=== PATIENT | female | born 1975 | race Caucasian/White ===

== ENCOUNTER 2020-10-09 10:54 | Outpatient (REF) | payer MEDICARE, MEDICAID, SELFPAY ==
[2020-10-09 13:30] LABS: MANUAL DIFF FLAG NO
[2020-10-09 13:31] LABS: Basophils Absolute Auto 0.1 X10*3/uL (0.0-0.2); Basophils Percent Auto 0.6 % (0-2); Eosinophils Absolute Auto 0.2 X10*3/uL (0.0-0.4); Eosinophils Percent Auto 1.4 % (0-4); Hematocrit 42.4 % (37-47); Imm Gran Abs Auto 0.04 X10*3/uL (0.00-0.03); Imm Gran Pct Auto 0.3 % (0.0-0.4); Lymphocytes Absolute Auto 3.6 X10*3/uL (1.2-4.9); Lymphocytes Percent Auto 30.1 % (20-40); Mean Corpuscular Volume 87.8 fL (80-98); Mean Platelet Volume 11.1 fL (9.4-12.3); Monocytes Absolute Auto 0.8 X10*3/uL (0.1-1.2); Neutrophils Absolute Auto 7.2 X10*3/uL (2.0-8.3); Neutrophils Percent Auto 60.6 % (45-73); Platelet Count 293 X10*3/uL (160-400); Red Blood Count 4.83 X10*6/uL (4.20-5.50); Red Cell Distribution Width 13.5 % (11.0-16.0); White Blood Count 11.8 X10*3/uL (4.8-10.8)
[2020-10-09 13:56] LABS: Alanine Aminotransferase 25 U/L (0-31); Albumin Level 4.5 g/dL (3.5-5.0); Alkaline Phosphatase 110 U/L (39-117); Anion Gap 12 (12-20); Aspartate Amino Transferase 23 U/L (5-31); Bilirubin Total 0.3 mg/dL (0.0-1.0); Blood Urea Nitrogen 8 mg/dL (9-16); Calcium 10.2 mg/dL (8.4-10.2); Carbon Dioxide 26 mmol/L (22-29); Chloride 108 mmol/L (96-108); Estimated Glomerular Filt Rate > 60; Glucose Random 77 mg/dL (60-115); Potassium 4.5 mmol/L (3.3-5.1); Sodium 141 mmol/L (135-145); Total Protein 6.9 g/dL (6.5-8.0)
== END 2020-10-09 10:55 | disposition home or self-care (01) ==
LOC: HO.LAB 10:54
PROVIDERS: PCP Registered Nurse Community Health; Visit Provider Nurse Practitioner
DX: K64.9 Unspecified hemorrhoids (principal); K59.00 Constipation, unspecified; E78.00 Pure hypercholesterolemia, unspecified; F17.200 Nicotine dependence, unspecified, uncomplicated
CPT/HCPCS: 36415; 80053; 85025; Q3014

== ENCOUNTER → 2020-11-11 12:57 | Outpatient (BNVA) | payer MEDICARE, MEDICAID, SELFPAY | PROVIDERS: PCP Registered Nurse Community Health; Visit Provider Surgery | DX: K64.8 Other hemorrhoids (principal) | CPT/HCPCS: 46600; 99202 ==

== ENCOUNTER 2020-12-18 10:20 | Day surgery (SDC) | payer MEDICARE, MEDICAID, SELFPAY ==
[2020-12-14 15:05] VITALS: BMI 33.6
--- NOTE | 2020-12-17 12:27 | P.CONAN_ITS ---
Documented by User: Cheryl Mesa NP 12/17/20 12:28 HPI - Anesthesia Eval Consult details Narrative: 45yo F for Colonoscopy PMFSH Active Problems Active Problems: All Active Problems (Updated 12/14/20 @ 15:04 by Shaunna Rey RN) Hemorrhoids (Acute) Constipation (Acute) Colon cancer screening (Acute) Hemorrhoids with complication (Acute) Anxiety (Acute) Past Medical History Medical History Anxiety COVID-19 vaccine series completed Elevated cholesterol Hemorrhoids with complication Family History Family History Maternal Grandmother Breast cancer Colon cancer Surgical History Surgical History Hx of foot surgery Hx of foot surgery Social History Social History Are you a primary personal care attendant to a significant other at home: No Do you presently have visiting nurse or other home services: No Patient Tobacco Use Status: Current everyday Tobacco user Tobacco use type: Cigarette Cigarettes Per Day: 5 Years Smoked: 25 Use of substances other than those prescribed or required for medical reasons: No Have you been hit, kicked, punched, or otherwise hurt by someone within the past year? If so, by whom?: No Are you DNR?: No Advance Directives Information Provided: Yes (informational brochure mailed) Advance Directives on File: No Recently lost weight without trying: No Eating poorly because of decreased appetite: No Nutrition Risks: No Nutritional Risk Patient : No FDLMP: post menopausal Poor oral hygiene: No Meds Allergies Allergy/AdvReac Type Severity Reaction Status Date / Time No Known Allergies Allergy Verified 11/11/20 13:17 Home Medications Medication Instructions Recorded Confirmed Last Taken Type atorvastatin 20 mg tablet 20 mg PO DAILY 10/09/20 12/14/20 Unknown History Exam Exam Date and Time: December 17, 2020 1227 Height,Weight and Vital Signs: Height 5 ft 4 in Weight 88.904 kg Pertinent Lab Results Pertinent Lab Results: Laboratory Tests 10/09/20 10/09/20 12:25 12:25 WBC 11.8 H Hgb 14.0 Hct 42.4 Plt Count 293 Sodium 141 Potassium 4.5 Chloride 108 Carbon Dioxide 26 BUN 8 L Creatinine 0.76 Assessment and Plan Assessment Anesthesia Assessment: Chart Reviewed Documented by User: Lady Miranda MD 12/18/20 11:05 [facility] Past Medical History Medical History Anxiety COVID-19 vaccine series completed Elevated cholesterol Hemorrhoids with complication Functional capacity: independent ambulation Patient : No Family History Family History Maternal Grandmother Breast cancer Colon cancer Family history of problems with anesthesia: No Surgical History Surgical History Hx of foot surgery Hx of foot surgery History of Problems with Anesthesia: No Social History Social History Are you a primary personal care attendant to a significant other at home: No Do you presently have visiting nurse or other home services: No Patient Tobacco Use Status: Current everyday Tobacco user Tobacco use type: Cigarette Cigarettes Per Day: 5 Years Smoked: 25 Use of substances other than those prescribed or required for medical reasons: No Have you been hit, kicked, punched, or otherwise hurt by someone within the past year? If so, by whom?: No Are you DNR?: No Advance Directives Information Provided: Yes (informational brochure mailed) Advance Directives on File: No Recently lost weight without trying: No Eating poorly because of decreased appetite: No Nutrition Risks: No Nutritional Risk Patient : No FDLMP: post menopausal Poor oral hygiene: No Meds Allergies Allergy/AdvReac Type Severity Reaction Status Date / Time No Known Allergies Allergy Verified 11/11/20 13:17 Home Medications Medication Instructions Recorded Confirmed Last Taken Type atorvastatin 20 mg tablet 20 mg PO DAILY 10/09/20 12/14/20 Unknown History Exam Airway Mallampati Class: II TM Dist: >3cm Heart: RRR Lungs: CTA Assessment and Plan Final Anesthetic Review Family History of Problems with Anesthesia: No History of Problems with Anesthesia: No ASA Class: II Patient Risk: Low Anesthetic Plan Anesthetic Plan: MAC: Disposition: Standard PACU
[2020-12-18 10:50] VITALS: BP 102/76; PULSE 84; RESP 16; TEMP 36.2; O2SAT 96
[2020-12-18] MEDS: Lactated Ringers 1,000 ML 100 ML IVCONT (11:50)
--- NOTE | 2020-12-18 11:50 | MHC.SHP ---
Pre-Procedural Eval Section A Date of Service: 12/18/20 The patient is an INPATIENT: No The History & Physical has been completed within 30 days and I have reviewed it.: No Section B Chief Complaint: hemorrhoids,screening Details of Present Illness: Colon cancer screening, hemorrhoids Relevant Family History (Specify if Yes): No Relevant Social History: None Present Medications: see Short Stay Collaborative assessment Medical History: Significant History (Anxiety disorder, hemorrhoids, chronic constipation) History of Previous Operations: Relevant previous surgery/procedure and date(s) (Hx of foot surgery) Allergies: Allergies Allergy/AdvReac Type Severity Reaction Status Date / Time No Known Allergies Allergy Verified 11/11/20 13:17 Review of Systems Sugical H&P ROS: Negative: Constitution, Cardiovascular and Respiratory and Yes, Specify: Gastrointestinal (rectal bleeding) Exam Surgical H&P Exam: Normal: Heart, Normal: Lungs, Normal: Extremities and Normal: Abdomen Plan Diagnosis/Plan: Unchanged I have reviewed the history and physical and performed a pertinent physical examination on my patient. No changes have occurred unless specified.
--- NOTE | 2020-12-18 12:08 | W.PM.OPN ---
Operative Note Operative Note Date of Service: 12/18/20 Narrative: Pre-op diagnosis:?Colon cancer screening, rectal bleeding, hemorrhoids Post-op diagnosis:?other (Diverticulosis, hemorrhoids) Procedure:? COLONOSCOPY TILL CECUM Consent: Indications for the procedure and potential complications of bleeding, perforation, reaction to medications and missed diagnosis were discussed with the patient and informed consent was obtained. Instrument: Olympus PCF H 190 L variable stiffness pediatric colonoscope Monitoring: Vital signs and clinical assessment, intermittent blood pressure monitoring, continuous EKG monitoring, Pulse oximetry and Carbon Dioxide monitoring were done throughout the procedure. Colon withdrawl time was 14 minutes. Procedure: The patient was placed in the left lateral decubitis position and pre-procedure medications were administered. After a digital rectal examination of the ano-rectum, the video colonoscope was inserted into the rectum and advanced through the colon to the cecum. The colonoscope was slowly withdrawn in a retrograde panoramic fashion and the colon mucosa was carefully examined including a retroflexed view of the rectum. Findings and interventions are described below. Procedure Difficulty: Without difficulty Findings: Terminal Ileum: Not evaluated Cecum:? Normal Ascending Colon:? Normal Transverse Colon:? Normal Descending Colon:? Normal Sigmoid Colon:? Mild diverticulosis Rectum:? Normal Ano-rectum:? Moderate internal hemorrhoids and juan-anal skin tags Colon preparation: Excellent ? Impression and Post Procedure Diagnosis: Colonoscopy Findings: No polyps were detected. Mild diverticulosis seen in the sigmoid colon Moderate hemorrhoids on retroflexed exam. Plan: Patient has an appointment on 12/31/20 in the GI [facility] with? Melissa Brewer NP - (FU of rectal bleeding). Repeat Colonoscopy in 10 years. Above findings were reviewed with the patient and Hemorrhoids handout was given in the discharge area Surgeon:?Susanna Shanks MD Anesthesia:?MAC (Rossana Johnson CRNA) Was an Lens Grinding Machine Operator used for this Procedure?:?Yes Lens Grinding Machine Operator:?Antonio Becker Estimated blood loss (mL):?0 Pathology:?none sent Condition:?stable Disposition:?PACU
[2020-12-18 12:40] VITALS: BP 94/52; PULSE 90; RESP 16; TEMP 36.1; O2SAT 98
[2020-12-18 12:55] VITALS: BP 119/77; PULSE 72; RESP 18; TEMP 36.1; O2SAT 99
--- NOTE | 2020-12-18 13:04 | HO.POSTANES ---
Post Anesthesia Evaluation Post Anesthesia Evaluation Vital Signs: Vital Signs Temp Pulse Resp BP Pulse Ox 12/18/20 12:55 97.0 F 72 18 119/77 99 12/18/20 12:40 97.0 F 90 16 94/52 L 98 12/18/20 10:50 97.2 F 84 16 102/76 96 Anesthesia: Monitored Mental Status: Awake Pain Control: Satisfactory Nausea/Vomiting: None Hydration: Adequate Anesthesia-Related Issues: No Anes. Related Issues
== END 2020-12-18 13:00 | disposition home or self-care (01) ==
PROVIDERS: PCP Registered Nurse Community Health; Visit Provider Internal Medicine Gastroenterology
PROC: 0DJD8ZZ Inspection of Lower Intestinal Tract, Via Natural or Artificial Opening Endoscopic (ICD-10-PCS; CPT 45378; principal; 2020-12-18 11:30)
DX: Z12.11 Encounter for screening for malignant neoplasm of colon (principal); K57.30 Diverticulosis of large intestine without perforation or abscess without bleeding; K64.8 Other hemorrhoids; K64.4 Residual hemorrhoidal skin tags; K59.00 Constipation, unspecified; F17.210 Nicotine dependence, cigarettes, uncomplicated
CPT/HCPCS: G0121

== ENCOUNTER 2020-12-29 06:06 | Day surgery (SDC) | payer MEDICARE, MEDICAID, SELFPAY ==
[2020-12-22 13:44] VITALS: BMI 33.7
--- NOTE | 2020-12-28 09:37 | P.CONAN_ITS ---
Documented by User: Cheryl Mesa NP 12/28/20 09:48 HPI - Anesthesia Eval Consult details Narrative: 45yo F for EUA, Hemorrhoidectomy s/p colonoscopy 12/19/20 with TIVA PMFSH Active Problems Active Problems: All Active Problems (Updated 12/14/20 @ 15:04 by Shaunna Rey RN) Hemorrhoids (Acute) Constipation (Acute) Colon cancer screening (Acute) Hemorrhoids with complication (Acute) Anxiety (Acute) Past Medical History Medical History Anxiety COVID-19 vaccine series completed Elevated cholesterol Hemorrhoids with complication Family History Family History Maternal Grandmother Breast cancer Colon cancer Family history of problems with anesthesia: No Surgical History Surgical History Hx of colonoscopy Hx of foot surgery Hx of foot surgery History of Problems with Anesthesia: No Social History Social History Are you a primary student career development specialist to a significant other at home: No Do you presently have visiting nurse or other home services: No Patient Tobacco Use Status: Current everyday Tobacco user Tobacco use type: Cigarette Cigarettes Per Day: 5 Years Smoked: 25 Smoked in Last 30 Days: Yes Use of substances other than those prescribed or required for medical reasons: No Have you been hit, kicked, punched, or otherwise hurt by someone within the past year? If so, by whom?: No Are you DNR?: No Advance Directives: No ( son ) Advance Directives Information Provided: Yes (mailed by [employer]INE in ) Advance Directives on File: No Recently lost weight without trying: No Eating poorly because of decreased appetite: No Nutrition Risks: No Nutritional Risk Patient : No Meds Allergies Allergy/AdvReac Type Severity Reaction Status Date / Time No Known Allergies Allergy Verified 12/29/20 06:15 Home Medications Medication Instructions Recorded Confirmed Last Taken Type atorvastatin 20 mg tablet 20 mg PO DAILY 10/09/20 12/22/20 Unknown History Exam Exam Date and Time: December 28, 2020 0937 Height,Weight and Vital Signs: Height 5 ft 4 in Weight 89.358 kg Pertinent Lab Results Pertinent Lab Results: Laboratory Tests ? 10/09/20 10/09/20 ? 12:25 12:25 WBC ?11.8 H ? Hgb ?14.0 ? Hct ?42.4 ? Plt Count ?293 ? Sodium ?B ?141 Potassium ? ?4.5 Chloride ? ?108 Carbon Dioxide ? ?26 BUN ? ?8 L Creatinine ? ?0.76 Assessment and Plan Assessment Anesthesia Assessment: Chart Reviewed Final Anesthetic Review Family History of Problems with Anesthesia: No History of Problems with Anesthesia: No Documented by User: Keke Miranda MD 12/29/20 07:21 PMFSH Past Medical History Medical History Anxiety COVID-19 vaccine series completed Elevated cholesterol Hemorrhoids with complication Family History Family History Maternal Grandmother Breast cancer Colon cancer Surgical History Surgical History Hx of colonoscopy Hx of foot surgery Hx of foot surgery Social History Social History Are you a primary student career development specialist to a significant other at home: No Do you presently have visiting nurse or other home services: No Patient Tobacco Use Status: Current everyday Tobacco user Tobacco use type: Cigarette Cigarettes Per Day: 5 Years Smoked: 25 Smoked in Last 30 Days: Yes Use of substances other than those prescribed or required for medical reasons: No Have you been hit, kicked, punched, or otherwise hurt by someone within the past year? If so, by whom?: No Are you DNR?: No Advance Directives: No ( son ) Advance Directives Information Provided: Yes (mailed by [employer] in ) Advance Directives on File: No Recently lost weight without trying: No Eating poorly because of decreased appetite: No Nutrition Risks: No Nutritional Risk Patient : No Meds Allergies Allergy/AdvReac Type Severity Reaction Status Date / Time No Known Allergies Allergy Verified 12/29/20 06:15 Home Medications Medication Instructions Recorded Confirmed Last Taken Type atorvastatin 20 mg tablet 20 mg PO DAILY 10/09/20 12/22/20 Unknown History Exam Airway Mallampati Class: II TM Dist: >3cm Neck ROM: Full
[2020-12-29] VITALS (12 sets, daily range): BP systolic 107–136; BP diastolic 67–88; PULSE 66–88; RESP 16–20; TEMP 36.1–36.3; O2SAT 92–99
[2020-12-29] MEDS: Lactated Ringers 1,000 ML 100 ML IVCONT (06:43)
--- NOTE | 2020-12-29 07:21 | P.HPSUR_ITS ---
Pre-Procedural Eval Section A Date of Service: 12/29/20 Section B Chief Complaint: Hemorrhoids with complication Details of Present Illness: has had many years of pain, swelling and bleeeding with hemorrhoids Relevant Family History (Specify if Yes): No Relevant Social History: None Present Medications: see Short Stay Collaborative assessment Medical History: Significant History (anxiety, hyperlipidemia) History of Previous Operations: No relevant previous surgery Allergies: Allergies Allergy/AdvReac Type Severity Reaction Status Date / Time No Known Allergies Allergy Verified 12/29/20 06:15 Review of Systems Sugical H&P ROS: Negative: Constitution, Cardiovascular, Respiratory, Neurological, Psychiatric, Hem-Onc, Allergic/Immunologic, Gastrointestinal, Genitourinary, Musculoskeletal, Integumentary, Endocrine and Eyes/Ears/No se/Throat Exam Surgical H&P Exam: Normal: HEENT, Normal: Heart, Normal: Lungs, Normal: Extremities, Normal: Abdomen, Normal: Skin and Normal: Neurological Exam Comment: bulky int and ext hemoirrhoids Plan Diagnosis/Plan: Unchanged I have reviewed the history and physical and performed a pertinent physical examination on my patient. No changes have occurred unless specified.
--- NOTE | 2020-12-29 08:15 | W.PM.OPN ---
Operative Note Operative Note Date of Service: 12/29/20 Narrative: Preop diagnosis: Internal and external hemorrhoids with pain and bleeding Postop diagnosis: The same Procedure: Exam under anesthesia, had ectomy x3 columns Surgeon: Alcides Neumann MD senior office support assistant sosa: NELSON Horton student The patient is a 45 year female who has had chronic problems with hemorrhoids. She describes pain, and bleeding, with frequent inflammation. She was noted have bulky hemorrhoidal columns on the left and right side. She wanted to proceed with hemorrhoidectomy in view of her symptoms. She understood technique of the procedure as well as the risks, benefits, and alternatives She was brought to the operating room and placed in prone simon-knife position under general anesthesia via endotracheal tube. The buttocks were retracted with wide tape laterally. The perianal areas prepped and draped usual sterile fashion. A surgical time-out was done. The patient received Cefotan 2 g IV preoperatively Examination of the anal orifice revealed a bulky external hemorrhoid columns, right more than the left. There was no loss of another external hemorrhoid column posteriorly as well which appeared to be chronically sclerosed. I inserted abuse Muniz retractor and examined the anal canal circumferentially. Again these hemorrhoidal columns on the left and right more noted to be a mix of internal and external. There were no other lesions seen. I applied a Hampton grasper at the hemorrhoidal column the left to retract this. I made a yzdpnl-vc-jfwhp stitch at the pedicle proximal to the dentate line using chromic 3-0. I made an incision around this hemorrhoidal column to the perianal skin using blade 15. I excised this hemorrhoidal column above the plane of sphincters using Metzenbaum scissors and close the incision with a running chromic 3-0 stitch. Additional hemostatic kaomow-bs-qabop sutures were placed. I then proceeded to apply a Hampton grasper at the hemorrhoidal column on the right side. I made a lmxeos-rg-bcqab stitch at the pedicle proximal to the dentate line using a chromic 3-0 stitch. I made an incision around this hemorrhoidal column to the perianal skin using a blade 15. And excised this hemorrhoidal column above the plane of sphincters using scissors. I closed this incision with a running chromic 3-0 stitch with additional hemostatic riivrl-xu-eswwf sutures being placed There was note of a small external hemorrhoidal column which appeared to be chronically sclerosed on the anterior area which I excised as well using a blade 15 and I closed this incision with a running chromic 3-0 stitch. I observed for hemostasis. Once hemostasis was ensured, I proceeded to place a rolled Gelfoam into the anal canal for additional hemostasis. I infiltrated the perianal area with Marcaine 0.5% for postop analgesia. The procedure was then completed The patient tolerated procedure well. There were no complication noted. Initial fine counts of sponges and instruments were correct. Estimated blood loss about 30 cc. The patient was then extubated without difficulty and transferred to the recovery room with stable vital signs.
[2020-12-29] MEDS: fentaNYL citrate/PF 100 MCG/2 ML VIAL 50 MCG IVPUSH ×4 (08:27→09:06)
[2020-12-29] MEDS: Acetaminophen 325 MG TABLET 650 MG PO (08:44)
[2020-12-29] MEDS: oxyCODONE HCl Immed Release 5 MG TABLET PO (08:45)
[2020-12-29] MEDS: oxyCODONE HCl Immed Release 5 MG TABLET 10 MG PO (09:09)
== END 2020-12-29 10:15 | disposition home or self-care (01) ==
PROVIDERS: PCP Registered Nurse Community Health; Visit Provider Surgery
PROC: (CPT 46260; principal; 2020-12-29 07:30)
DX: K64.8 Other hemorrhoids (principal); K64.4 Residual hemorrhoidal skin tags; F41.9 Anxiety disorder, unspecified
CPT/HCPCS: 46260; 88304; J1100; J2250; J2405; J3010

== ENCOUNTER → 2021-01-05 11:46 | Outpatient (BNVA) | payer MEDICARE, MEDICAID, SELFPAY | PROVIDERS: PCP Registered Nurse Community Health; Visit Provider Nurse Practitioner | DX: Z80.0 Family history of malignant neoplasm of digestive organs (principal) | CPT/HCPCS: Q3014 ==

== ENCOUNTER → 2021-01-11 10:44 | Outpatient (BNVA) | payer MEDICARE, MEDICAID, SELFPAY | PROVIDERS: PCP Registered Nurse Community Health; Referring Provider Registered Nurse Community Health; Visit Provider Surgery | DX: Z48.815 Encounter for surgical aftercare following surgery on the digestive system (principal); Z87.19 Personal history of other diseases of the digestive system | CPT/HCPCS: 99212 ==

== ENCOUNTER 2021-09-30 11:21 | Outpatient (REF) | payer MEDICARE, MEDICAID, SELFPAY ==
--- NOTE | ~2021-09-30 | MM_ITS ---
EXAMINATION: MM SCREENING DIGITAL BREAST TOMOSYNTHESIS, BILATERAL CLINICAL INFORMATION: Screening. Asymptomatic. The lifetime risk of breast cancer based on the Tyrer-Cuzick Model is 8.4%. COMPARISON: Mammography: None TECHNIQUE: Digital breast tomosynthesis is performed in both the craniocaudal and mediolateral oblique views along with computer-aided detection (CAD). Synthesized 2D images are generated from the tomosynthesis. FINDINGS: There are scattered areas of fibroglandular density (ACR BI-RADS breast composition Category b). There are no significant masses, abnormal calcifications, or other abnormalities. There is calcification within a right axillary lymph node likely related to tattoo ink. MM/MM tomosynthesis screening BI IMPRESSION: No mammographic evidence of malignancy. ASSESSMENT: BI-RADS 1: Negative RECOMMENDATION: Routine annual mammography screening. This patient's information was entered into a reminder system with a target due date for their next mammogram.
== END 2021-09-30 11:22 | disposition home or self-care (01) ==
LOC: HO.MAMMO 11:21
PROVIDERS: Visit Provider Registered Nurse Community Health
DX: Z12.31 Encounter for screening mammogram for malignant neoplasm of breast (principal)
CPT/HCPCS: 77063; 77067

== ENCOUNTER 2021-12-23 12:48 | Outpatient (REF) | payer MEDICARE, MEDICAID, SELFPAY ==
--- NOTE | ~2021-12-23 | MM_ITS ---
EXAMINATION: BONE DENSITOMETRY CLINICAL INDICATION: Postmenopausal. COMPARISON: None (current study represents initial baseline exam). TECHNIQUE: Using a [employer] DXA System (software version: 13.1) manufactured by [employer], dual-energy x-ray absorptiometry was performed of the lumbar spine and left hip. The images are of good technical quality. Summary results are attached. FINDINGS: AP SPINE L1-L4: BMD 1.034 g/cm2, Z-score -1.5, T-score -1.2, osteopenia. LEFT FEMUR, NECK: BMD 0.835 g/cm2, Z-score -1.1, T-score -1.5, osteopenia. LEFT FEMUR, TOTAL: BMD 0.932 g/cm2, Z-score -0.6, T-score -0.6, normal. IDENTIFIED RISK FACTORS: Early menopause, tobacco use (current smoker), secondary osteoporosis. HISTORY OF FRACTURE: None listed. MEDICATIONS: Vitamin D. MM/XR DEXA axial skeleton IMPRESSION: 1. DIAGNOSIS: Osteopenia based on the lowest T-score value of -1.5 in the femoral neck applying World Health Organization criteria. 2. 10-YEAR FRACTURE RISK PREDICTION, FRAX: Major osteoporotic fracture (clinical spine, forearm, hip or shoulder) 2.2%. Hip fracture 0.3%. 3. Treatment Recommendations: NOF guidelines recommend consideration for treatment in postmenopausal women and men age 50 and older presenting with the following: -A hip or vertebral (clinical or morphometric) fracture. -T-score less than or equal to -2.5 at the femoral neck or spine after appropriate evaluation to exclude secondary causes. -Low bone mass at the hip or spine and a 10-year fracture probability by FRAX of greater than or equal to 3% for hip fracture or greater than or equal to 20% for major osteoporotic fracture based on the [place] adapted WHO algorithm. 4. Other Recommendations: All treatment decisions require clinical judgment and consideration of individual patient factors, including patient preferences, comorbidities, previous drug use, risk factors not captured in the FRAX model (e.g. frailty, falls, vitamin D deficiency, increased bone turnover, interval significant decline in bone density) and possible under or overestimation of fracture risk by FRAX. Additional medical evaluation for secondary cause of low bone mineral density may be appropriate. FUTURE SCAN RECOMMENDATION: People with diagnosed cases of osteoporosis or at high risk for fracture should have regular bone mineral density tests. For patients eligible for Medicare, routine testing is allowed once every 2 years. The testing frequency can be increased to one year for patients who have rapidly progressing disease, those who are receiving or discontinuing medical therapy to restore bone mass, or have additional risk factors.
== END 2021-12-23 12:49 | disposition home or self-care (01) ==
LOC: HO.MAMMO 12:48
PROVIDERS: PCP Registered Nurse; Visit Provider Registered Nurse
DX: Z13.820 Encounter for screening for osteoporosis (principal); Z78.0 Asymptomatic menopausal state
CPT/HCPCS: 77080

== ENCOUNTER 2022-01-05 09:31 | Outpatient (REF) | payer MEDICARE, MEDICAID, SELFPAY ==
--- NOTE | ~2022-01-05 | XR_ITS ---
EXAMINATION: XR LUMBOSACRAL SPINE CLINICAL INFORMATION: Osteopenia with history of traumatic fracture. COMPARISON: None TECHNIQUE: Three views of the lumbosacral spine. FINDINGS: The vertebral bodies and posterior elements are unremarkable. There is some minimal narrowing of the L4-L5 disc space. The disc spaces are otherwise preserved and the vertebral alignment is normal. The paraspinal soft tissues are normal. XR/XR lumbar spine 2-3V IMPRESSION: Minimal narrowing of the L4-L5 disc space.
[2022-01-05 11:31] LABS: Cholesterol 176 mg/dL; HDL Cholesterol 58 mg/dL; LDL Cholesterol Calculated 102 mg/dl; Triglycerides 80 mg/dL
[2022-01-05 11:41] LABS: Vitamin D 25-OH Total 32.3 ng/mL (>30)
== END 2022-01-05 09:32 | disposition home or self-care (01) ==
LOC: HO.XRAY 09:31
PROVIDERS: PCP Registered Nurse; Visit Provider Registered Nurse
DX: Z00.00 Encounter for general adult medical examination without abnormal findings (principal); M85.89 Other specified disorders of bone density and structure, multiple sites; Z87.81 Personal history of (healed) traumatic fracture
CPT/HCPCS: 36415; 72100; 80061; 82306

== ENCOUNTER 2022-11-02 19:30 | Outpatient (REF) | payer OTHER, SELFPAY | END 2022-11-02 19:31 | disposition home or self-care (01) | LOC: HO.HHCL 19:30 | PROVIDERS: Visit Provider Registered Nurse | DX: N90.9 Noninflammatory disorder of vulva and perineum, unspecified (principal); A60.09 Herpesviral infection of other urogenital tract | CPT/HCPCS: 36415; 87255 ==

== ENCOUNTER 2023-06-21 11:56 | Outpatient (REF) | payer OTHER, SELFPAY ==
[2023-06-21 14:08] LABS: Alanine Aminotransferase 24 U/L (0-31); Albumin Level 4.3 g/dL (3.5-5.0); Alkaline Phosphatase 110 U/L (39-117); Anion Gap 11 (12-20); Aspartate Amino Transferase 22 U/L (5-31); Bilirubin Total 0.5 mg/dL (0.0-1.0); Blood Urea Nitrogen 11 mg/dL (9-16); Calcium 9.9 mg/dL (8.4-10.2); Carbon Dioxide 28 mmol/L (22-29); Chloride 104 mmol/L (96-108); Cholesterol 273 mg/dL (<200); Estimated Average Glucose 105 mg/dL; Estimated Glomerular Filt Rate > 60; Glucose Random 90 mg/dL (60-115); HDL Cholesterol 71 mg/dL (>40); Hemoglobin A1c % 5.3 % (<6.0); LDL Cholesterol Calculated 186 mg/dL (<100); Potassium 4.2 mmol/L (3.3-5.1); Sodium 139 mmol/L (135-145); Total Protein 7.1 g/dL (6.5-8.0); Triglycerides 81 mg/dL (<150)
[2023-06-21 14:25] LABS: TSH reflex Free T4 1.64 uIU/mL (0.32-4.0); Vitamin D 25-OH Total 28.6 ng/mL (>30)
== END 2023-06-21 11:57 | disposition home or self-care (01) ==
LOC: HO.HHCL 11:56
PROVIDERS: Visit Provider Registered Nurse
DX: E66.01 Morbid (severe) obesity due to excess calories (principal); Z68.35 Body mass index [BMI] 35.0-35.9, adult; E78.2 Mixed hyperlipidemia
CPT/HCPCS: 36415; 80053; 80061; 82306; 83036; 84443

== ENCOUNTER 2023-08-30 14:00 | Outpatient (REF) | payer OTHER, SELFPAY ==
--- NOTE | 2023-08-30 14:04 | EMG_ITS ---
Chief complaint: Left hand numbness Reason for referral: Evaluate for Carpal Tunnel Syndrome Referred by: Archana [place] NATHAN Procedure done: Left upper extremity NCS Precautions and/or limitations: Difficulty tolerating the test. Afraid of needles. The limb temperature was monitored continuously and remained between 32-36 degrees C during the performance of the NCS. Nerve Conduction Studies Anti Sensory Summary Table ?Stim Site NR Onset (ms) Norm Onset (ms) Peak (ms) Norm Peak (ms) O-P Amp (?V) Norm O-P Amp Site1 Site2 Delta-0 (ms) Dist (cm) Adi (m/s) Norm Adi (m/s) Left Median Anti Sensory (2nd Digit) Wrist ? 2.3 3.1 <3.6 39.7 >10 Wrist 2nd Digit 2.3 14.0 61 Left Radial Anti Sensory (Thumb) Forearm ? 1.3 1.9 <3.1 62.3 Forearm Thumb 1.3 0.0 Left Ulnar Anti Sensory (5th Digit) Wrist ? 2.4 3.1 <3.7 39.2 >15.0 Wrist 5th Digit 2.4 14.0 58 Motor Summary Table ?Stim Site NR Onset (ms) Norm Onset (ms) O-P Amp (mV) Norm O-P Amp iAmp (mV) Amp (1st) (%) Site1 Site2 Delta-0 (ms) Dist (cm) Adi (m/s) Norm Adi (m/s) Left Median Motor (Abd Poll Brev) Wrist ? 3.2 <3.9 15.1 >4.5 18.4 100.0 Elbow Wrist 3.6 21.0 58 >45 Elbow ? 6.8 14.3 17.3 94.7 Left Ulnar Motor (Abd Dig Minimi) Wrist ? 2.6 <3.0 9.2 >5 11.1 100.0 B Elbow Wrist 3.4 18.0 53 >45 B Elbow ? 6.0 8.6 9.8 93.5 A Elbow B Elbow 1.3 10.0 77 >45 A Elbow ? 7.3 8.5 9.8 92.4 FINDINGS: All motor and sensory nerves tested showed normal latencies, amplitudes and conduction velocities. Needle EMG deferred. IMPRESSION: 1. This is a normal NCS. 2. There is no electrodiagnostic evidence for median neuropathy or ulnar neuropathy. Thank you for your kind referral. Christen Phillips MD, VINCE Board Certified, [place] Board of [employer] Medicine and Rehabilitation (ABPMR) Board Certified, [place] Board of Electrodiagnostic Medicine (ABEM) [facility]
== END 2023-08-30 14:01 | disposition home or self-care (01) ==
LOC: HO.NEURO 14:00
PROVIDERS: PCP Registered Nurse; Visit Provider Registered Nurse
DX: R20.0 Anesthesia of skin (principal); R20.2 Paresthesia of skin
CPT/HCPCS: 95909

== ENCOUNTER → 2023-08-30 14:04 | Outpatient (BNV) | payer OTHER, SELFPAY | PROVIDERS: PCP Registered Nurse; Visit Provider Physical Medicine & Rehabilitation | DX: R20.2 Paresthesia of skin (principal) | CPT/HCPCS: 95909 ==

== ENCOUNTER 2023-10-23 13:45 | Outpatient (REF) | payer OTHER, SELFPAY ==
[2023-10-23 16:09] LABS: MANUAL DIFF FLAG NO
[2023-10-23 16:16] LABS: Basophils Absolute Auto 0.1 X10*3/uL (0.0-0.2); Basophils Percent Auto 0.7 % (0-2); Eosinophils Absolute Auto 0.1 X10*3/uL (0.0-0.4); Eosinophils Percent Auto 0.5 % (0-4); Hematocrit 42.3 % (37.0-47.0); Hemoglobin 14.1 g/dl (12.0-16.0); Imm Gran Abs Auto 0.03 X10*3/uL (0.00-0.03); Imm Gran Pct Auto 0.3 % (0.0-0.4); Lymphocytes Absolute Auto 2.6 X10*3/uL (1.2-4.9); Lymphocytes Percent Auto 27.4 % (20-40); Mean Corpuscular HGB Conc 33.3 g/dl (31.0-35.0); Mean Corpuscular Hemoglobin 27.8 pg (27.0-33.0); Mean Corpuscular Volume 83.4 fL (80.0-98.0); Mean Platelet Volume 11.4 fL (9.4-12.3); Monocytes Absolute Auto 0.7 X10*3/uL (0.1-1.2); Monocytes Percent Auto 7.3 % (2-11); Neutrophils Absolute Auto 6.2 x10*3/uL (2.0-8.3); Neutrophils Percent Auto 63.8 % (45-73); Platelet Count 297 X10*3/uL (160-400); Red Blood Count 5.07 X10*6/uL (4.20-5.50); Red Cell Distribution Width 13.3 % (11.0-16.0); White Blood Count 9.6 X10*3/uL (4.8-10.8)
[2023-10-23 16:52] LABS: Alanine Aminotransferase 17 U/L (0-31); Albumin Level 4.7 g/dL (3.5-5.0); Alkaline Phosphatase 95 U/L (39-117); Anion Gap 15 (12-20); Aspartate Amino Transferase 22 U/L (5-31); Bilirubin Total 0.6 mg/dL (0.0-1.0); Blood Urea Nitrogen 12 mg/dL (9-16); Calcium 10.7 mg/dL (8.4-10.2); Carbon Dioxide 23 mmol/L (22-29); Chloride 102 mmol/L (96-108); Estimated Glomerular Filt Rate > 60; Glucose Random 87 mg/dL (60-115); Potassium 4.2 mmol/L (3.3-5.1); Sodium 136 mmol/L (135-145); Total Protein 7.6 g/dL (6.5-8.0)
[2023-10-23 17:00] LABS: TSH reflex Free T4 1.17 uIU/mL (0.32-4.0)
== END 2023-10-23 13:46 | disposition home or self-care (01) ==
LOC: HO.HHCL 13:45
PROVIDERS: Visit Provider Registered Nurse
DX: N93.9 Abnormal uterine and vaginal bleeding, unspecified (principal)
CPT/HCPCS: 36415; 80053; 84443; 85025

== ENCOUNTER 2024-02-13 11:22 | Outpatient (REF) | payer OTHER, SELFPAY ==
--- NOTE | ~2024-02-13 | MM_ITS ---
EXAMINATION: BONE DENSITOMETRY CLINICAL INDICATION: Osteopenia in patient with early menopause and significant smoking history. COMPARISON: Baseline BD dated 12/23/2021. TECHNIQUE: Using a [employer] DXA System (software version: 13.1) manufactured by [employer], dual-energy x-ray absorptiometry was performed of the lumbar spine and left hip. The images are of good technical quality. Summary results are attached. FINDINGS: LEFT FEMUR, NECK: Current: BMD 0.806 g/cm2, Z-score -1.0, T-score -1.7, osteopenia. Baseline: BMD 0.835 g/cm2. LEFT FEMUR, TOTAL: Current: BMD 0.893 g/cm2, Z-score -0.6, T-score -0.9, normal, 4.2% decrease from baseline (<5% change is not significant). Baseline: BMD 0.932 g/cm2. AP SPINE L1-L4: Current: BMD 1.003 g/cm2, Z-score -1.3, T-score -1.5, osteopenia, 3.0% decrease from baseline (<5% change is not significant). Baseline: BMD 1.034 g/cm2. IDENTIFIED RISK FACTORS: Early menopause, secondary osteoporosis, height loss. HISTORY OF FRACTURE: None listed. MEDICATIONS: Calcium supplements or multivitamin, vitamin D. MM/XR DEXA axial skeleton IMPRESSION: 1. DIAGNOSIS: Osteopenia based on the lowest T-score value of -1.7 in the femoral neck applying World Health Organization criteria. 2. 10-YEAR FRACTURE RISK PREDICTION, FRAX: Major osteoporotic fracture (clinical spine, forearm, hip or shoulder) 2.8%. Hip fracture 0.3%. 3. Treatment Recommendations: NOF guidelines recommend consideration for treatment in postmenopausal women and men age 50 and older presenting with the following: -A hip or vertebral (clinical or morphometric) fracture. -T-score less than or equal to -2.5 at the femoral neck or spine after appropriate evaluation to exclude secondary causes. -Low bone mass at the hip or spine and a 10-year fracture probability by FRAX of greater than or equal to 3% for hip fracture or greater than or equal to 20% for major osteoporotic fracture based on the [place] adapted WHO algorithm. 4. Other Recommendations: All treatment decisions require clinical judgment and consideration of individual patient factors, including patient preferences, comorbidities, previous drug use, risk factors not captured in the FRAX model (e.g. frailty, falls, vitamin D deficiency, increased bone turnover, interval significant decline in bone density) and possible under or overestimation of fracture risk by FRAX. Additional medical evaluation for secondary cause of low bone mineral density may be appropriate. FUTURE SCAN RECOMMENDATION: People with diagnosed cases of osteoporosis or at high risk for fracture should have regular bone mineral density tests. For patients eligible for Medicare, routine testing is allowed once every 2 years. The testing frequency can be increased to one year for patients who have rapidly progressing disease, those who are receiving or discontinuing medical therapy to restore bone mass, or have additional risk factors. Electronically signed by: Robert Selby MD 02/13/2024 12:50 PM [facility]
== END 2024-02-13 11:23 | disposition home or self-care (01) ==
LOC: HO.MAMMO 11:22
PROVIDERS: PCP Registered Nurse; Visit Provider Registered Nurse
DX: Z12.31 Encounter for screening mammogram for malignant neoplasm of breast (principal); Z13.820 Encounter for screening for osteoporosis; Z78.0 Asymptomatic menopausal state; M85.80 Other specified disorders of bone density and structure, unspecified site
CPT/HCPCS: 77063; 77067; 77080

== ENCOUNTER → 2024-02-13 12:00 | Outpatient (BNV) | payer OTHER, SELFPAY | PROVIDERS: PCP Registered Nurse; Visit Provider Internal Medicine | DX: Z12.31 Encounter for screening mammogram for malignant neoplasm of breast (principal) | CPT/HCPCS: 77063; 77067 ==

== ENCOUNTER 2024-10-31 10:27 | Outpatient (REF) | payer OTHER, SELFPAY ==
--- OUTSIDE RECORDS SUMMARY | 2024-10-31 10:40 | XMS_ITS | Encounter Summary ---
Author Organization [employer] Address [address] [facility] [address] [place] [address] Care Team Providers Care Pantograph Setter Name Role Phone Archana Judd PIERCING MILL OPERATOR Primary Care Provider [phone] Reason for Visit * Reason Comments Sore Throat Encounter Details Date Type Department Care Team ([facility] Contact Info) Description 10/31/2024 10:40 AM EDT Office Visit [facility] [address], [place] [phone] Shena Harrgove MD [address] [place] [address] Sore throat (Primary Dx) Social History Tobacco Use Types Packs/Day Years Used Date Smoking Tobacco: Former Cigarettes 0.3 15 Smokeless Tobacco: Never Tobacco Cessation:Counseling Given: Not Answered Alcohol Use Standard Drinks/Week Comments Never 0 (1 standard drink = 0.6 oz pur e alcohol) Depression Answer Date Recorded Patient Health Questionnaire-9 Score 0 09/25/2024 Patient Health Questionnaire-9 Score 0 09/25/2024 Last PHQ-9: Questionnaire Data Not on file 0 09/25/2024 Housing Stability Answer Date Recorded What is your housing situation today? I have [place] 09/17/[address] you li ve. Do you have problems with any of the following? None of the above 09/17/2024 Food Insecurity Answer Date Recorded Within the past 12 months, y ou worried that your food would run out before you got money to buy more: Never True 09/17/2024 Within the past 12 months,th e food you bought just didn't last and you didn't have enough money to get more: Never True Transportation Answer Date Recorded In the past 12 months, has l ack of transportation kept you from medical appts, meetings, work or from getting things needed for daily living? No 09/17/2024 Utilities Answer Date Recorded In the past 12 months, has t he electric, gas, oil or water company threatened to shut off services in your home? No 09/17/2024 Depression Answer Date Recorded Patient Health Questionnaire-2 Score 0 09/25/2024 Internet Access Answer Date Recorded Internet Access Q1 Yes 09/17/2024 Internet Access Q2 Not on file 09/17/2024 Comments No Sex and Gender Information Value Date Recorded Sex Assigned at Female 12/27/2021 10:38 AM EDT Legal Sex Female 10:38 AM EDT Gender Identity Female 12/27/2021 10:38 AM EDT Sexual Orientation Choose not to disclose 2021 10:38 AM EDT documented as of this encounter Last Filed Vital Signs Vital Sign Reading Time Taken Comments Blood Pressure 110/72 10/31/2024 10:41 AM EDT Pulse 64 10/31/2024 10:41 AM EDT Temperature 36.6 C (97.8 F) 10/31/2024 10:41 AM EDT Respiratory Rate 20 10/31/2024 10:41 AM EDT Oxygen Saturation 98% 10/31/2024 10:41 AM EDT Inhaled Oxygen Concentration - - Weight 67 kg (147 lb 9.6 oz) 10/31/2024 10:41 AM EDT Height 160 cm (5' 3 ) 10/31/2024 10:41 AM EDT Body Mass Index 26.15 10/31/2024 10:41 AM EDT documented in this encounter Progress Notes * Genny Matute - 10/31/2024 10:40 AM EDT Subjective History was provided by the patient. Lynn Pizano is a 49 y.o. female with past medical history of herpes(10/07/24) who presents for evaluation of symptoms of a URI. Symptoms include tenderness to the left side of her throat. Onset of symptoms was 1 week ago, unchanged since that time. Reports additional congestion and some allergie s, that's intermittent. Notes some intermittent voice changes, that self resolves. Associated negative symptoms include fever, nausea, vomiting, and sick contacts. Evaluation to date: none. Treatmentto date: none. Objective Vitals: 10/31/24 1041 BP: 110/72 BP Location: Left arm Patient Position: Sitting BP Cuff Size: Adult Pulse: 64 Resp: 20 Temp: 97.8 ??F (36.6 ??C) TempSrc: Temporal SpO2: 98% Weight: 147 lb 9.6 oz (67 kg) Height: 5' 3 (1.6 m) Physical Exam Constitutional: Appearance: Normal appearance. HENT: Right Ear: Tympanic membrane normal. Left Ear: Tympanic membrane normal. Nose: No congestion (mild). Mouth/Throat: Mouth: Mucous membranes are moist. Pharynx: Oropharynx is clear. Uvula midline. No oropharyngeal exudate, posterior oropharyngeal erythema or postnasal drip. Tonsils: No tonsillar exudate. Eyes: Conjunctiva/sclera: Conjunctivae normal. Cardiovascular: Rate and Rhythm: Normal rate and regular rhythm. Heart sounds: Normal heart sounds. Pulmonary: Effort: Pulmonary effort is normal. Breath sounds: Normal breath sounds. Musculoskeletal: Cervical back: Normal range of motion. No rigidity or tenderness. Lymphadenopathy: Cervical: No cervical adenopathy. Neurological: Mental Status: She is alert. Psychiatric: Behavior: Behavior normal. No visits with results within 2 Day(s) from this visit. Latest known visit with results is: Procedure Visit on 10/23/2023 Component Date Value Ref Range Status White Blood Count 10/23/2023 9.6 4.8 - 10.8 X10*3/uL Final Red Blood Count 10/23/2023 5.07 4.20 - 5.50 X10*6/uL Final Hemoglobin 10/23/2023 14.1 12.0 - 16.0 g/dl Final Hematocrit 10/23/2023 42.3 37.0 - 47.0 % Final Mean Corpuscular Volume 10/23/2023 83.4 80.0 - 98.0 fL Final Mean Corpuscular Hemoglobin 10/23/2023 27.8 27.0 - 33.0 pg Final Mean Corpuscular HGB Conc 10/23/2023 33.3 31.0 - 35.0 g/dl Final Red Cell Distribution Width 10/23/2023 13.3 11.0 - 16.0 % Final Platelet Count 10/23/2023 297 160 - 400 X10*3/uL Final Mean Platelet Volume 10/23/2023 11.4 9.4 - 12.3 fL Final Neutrophils Percent Auto 10/23/2023 63.8 45 - 73 % Final Imm Gran Pct Auto 10/23/2023 0.3 0.0 - 0.4 % Final Lymphocytes Percent Auto 10/23/2023 27.4 20 - 40 % Final Monocytes Percent Auto 10/23/2023 7.3 2 - 11 % Final Eosinophils Percent Auto 10/23/2023 0.5 0 - 4 % Final Basophils Percent Auto 10/23/2023 0.7 0 - 2 % Final NRBC Pct Auto 10/23/2023 0.0 0.0 - 0.2 /100WBC Final Neutrophils Absolute Auto 10/23/2023 6.2 2.0 - 8.3 x10*3/uL Final Imm Gran Abs Auto 10/23/2023 0.03 0.00 - 0.03 X10*3/uL Final Lymphocytes Absolute Auto 10/23/2023 2.6 1.2 - 4.9 X10*3/uL Final Monocytes Absolute Auto 10/23/2023 0.7 0.1 - 1.2 X10*3/uL Final Eosinophils Absolute Auto 10/23/2023 0.1 0.0 - 0.4 X10*3/uL Final Basophils Absolute Auto 10/23/2023 0.1 0.0 - 0.2 X10*3/uL Final NRBC Abs Auto 10/23/2023 0.000 0.0 - 0.012 X10*3/uL Final Sodium 10/23/2023 136 135 - 145 mmol/L Final Potassium 10/23/2023 4.2 3.3 - 5.1 mmol/L Final Chloride 10/23/2023 102 96 - 108 mmol/L Final Carbon Dioxide 10/23/2023 23 22 - 29 mmol/L Final Anion Gap 10/23/2023 15 12 - 20 Final Urea Nitrogen (BUN) 10/23/2023 12 9 - 16 mg/dL Final Creatinine, Serum 10/23/2023 0.81 0.5 - 1.4 mg/dL Final Estimated Glomerular Filt Rate 10/23/2023 >60 Final NOTE: For -Slovenian individuals, multiply the result by 1.210.Chronic Kidney Disease: Estimated GFR < 60 mL/min/[id number] Kidney Disease: Estimated GFR < 15 mL/min/1.73m2 Glucose 10/23/2023 87 60 - 115 mg/dL Final Calcium 10/23/2023 10.7 (H) 8.4 - 10.2 mg/dL Final Bilirubin, Total 10/23/2023 0.6 0.0 - 1.0 mg/dL Final Aspartate Amino Transferase 10/23/2023 22 5 - 31 U/L Final Alanine Aminotransferase 10/23/2023 17 0 - 31 U/L Final Total Protein 10/23/2023 7.6 6.5 - 8.0 g/dL Final Albumin Level 10/23/2023 4.7 3.5 - 5.0 g/dL Final Alkaline Phosphatase 10/23/2023 95 39 - 117 U/L Final TSH reflex Free T4 10/23/2023 1.17 0.32 - 4.0 uIU/mL Final -No evidence of respiratory distress. Symptoms mild. -No evidence of dehydration. -Supportive care advised. -Isolation recommendations discussed. -ER precautions discussed. -Seek medical attention for worsening symptoms. Assessment & Plan Sore throat -No evidence of acute infectious process. Suspect likely allergies, possible developing infection, and possible allergy flare. Symptoms mild. -Swabs for COVID, Flu and Strep negative. -Encouraged gargling with salt water and trying cough drops. -Will treat with additional Zyrtec. -if no improvement will consider imaging and ENT referral in 2 weeks. -ER precautions discussed. -Seek medical attention for worsening symptoms. Future Appointments Date Time Provider Department Center 11/20/2024 10:15 AM [facility] MEDICINE [facility] Genny Ma, am serving as a scribe to document services personally performed by Dr. Domínguez, based on the patient's response to questions by provider and providers statements to me. documented in this encounter Plan of Treatment Upcoming Encounters Date Type Department Care Team (Late st Contact Info) Description 11/20/2024 10:15 AM EDT Office Visit [facility] [address] [place] [address] Jerome Archana, PIERCING MILL OPERATOR [address] [place] [address] documented as of this encounter Procedures Procedure Name Priority Date/Time Associated Diagnosis Comments POCT INFLUENZA B (ID NOW RAPID MOLECULAR) Routine 10/31/2024 10:58 AM EDT Sore throat POCT INFLUENZA A (ID NOW RAPID MOLECULAR) Routine 10/31/2024 10:58 AM EDT Sore throat POCT RAPID COVID ANTIGEN Routine 10/31/2024 10:58 AM EDT Sore throat POCT RAPID STREP A Routine 10/31/2024 10 :58 AM EDT Sore throat documented in this encounter Results * POCT Rapid COVID Ag (10/31/2024 10:58 AM EDT) Pathologist [facility] Rapid COVID Ag Negative Swab 10/31/2024 10:5 8 AM EDT us Shena Hargrove MD POINT OF CARE TEST ENTER/E DIT ORDERABLES Final Result * POCT rapid strep A manually resulted (10/31/2024 10:58 AM EDT) Pathologist [facility] Rapid Strep A Screen Negative Negative, None Detected Swab 10/31/2024 10:5 8 AM EDT us Shena Hargrove MD POINT OF CARE TEST ENTER/E DIT ORDERABLES Final Result * Influenza A (ID NOW Rapid Molecular) (10/31/2024 10:58 AM EDT) Influenza A Negative Negative, Indeterminate [facility] Swab 10/31/2024 10:5 8 AM EDT us Shena Hargrove MD POINT OF CARE TEST ENTER/E DIT ORDERABLES Final Result Performing Organization Address [facility]/ZIP Co de Phone Number [facility] [address] [place] [address] [phone] * Influenza B (ID NOW Rapid Molecular) (10/31/2024 10:58 AM EDT) Influenza B Negative Negative, Indeterminate [facility] Swab 10/31/2024 10:5 8 AM EDT us Shena Hargrove MD POINT OF CARE TEST ENTER/E DIT ORDERABLES Final Result Performing Organization Address [facility] Co de Phone Number [facility] [address] [place] [phone] documented in this encounter Visit Diagnoses Diagnosis Sore throat- Primary Acute pharyngitis documented in this encounter Additional Health Concerns Assessment Noted Time PHQ-9 Depression Total Score: 0 09/26/19 25 10:17 AM EDT documented as of this encounter Care Teams Pantograph Setter Relationship Specialty Start Date End Date Archana Judd FNP [address] [place] [phone] PCP - General Family Medicine 10/25/21 documented as of this encounter
--- OUTSIDE RECORDS SUMMARY | 2024-10-31 11:47 | XMS_ITS | Encounter Summary ---
Author Organization [employer] Address [address] [facility] [address] [place] [address] Care Team Providers Care Manufacturing Mill[employer] Name Role Phone Archana Judd Primary Care Provider [phone] Encounter Details Date Type Department Care Team (Late Contact Info) Description 03/07/2022 Abstract [facility] [address] [place], [place] [phone] Yaw Hyde DDS [address] [place], [place] [phone] Social History Tobacco Use Types Packs/Day Years Used Date Smoking Tobacco: Some Days Cigarettes 0.3 15 Smokeless Tobacco: Never Alcohol Use Standard Drinks/Week Comments Never 0 (1 standard drink = 0.6 oz pur e alcohol) Comments Unknown Sex and Gender Information Value Date Recorded Sex Assigned at Female 12/27/2021 10:38 AM EDT Legal Sex Female 10:38 AM EDT Gender Identity Female 12/27/2021 10:38 AM EDT Sexual Orientation Choose not to disclose 2021 10:38 AM EDT COVID-19 Exposure Response Date Recorded In the last 10 days, have yo u been in contact with someone who was confirmed or suspected to have Coronavirus/COVID-19? No / Unsure 02/16/2022 1:08 PM EST documented as of this encounter Plan of Treatment Upcoming Encounters Date Type Department Care Team (Late Contact Info) Description 11/20/2024 10:15 AM EDT Office Visit [facility] [address] [place] [address] Archana Judd FNP [address] [place] [address] documented as of this encounter Visit Diagnoses Not on filedocumented in this encounter Care Teams [employer] Relationship Specialty Start Date End Date Archana Judd FNP [address] [place] [address] [place] [address] PCP - General Family Medicine 10/25/21 documented as of this encounter
--- OUTSIDE RECORDS SUMMARY | 2024-10-31 11:47 | XMS_ITS | Clinical Summary ---
Author Organization [employer] Address [address] [facility] 7[address] [place] [address] Care Team Providers Care Reclaimer Name Role Phone Archana Judd [facility] Primary Care Provider [phone] Allergies No known active allergies Medications Blood Pressure kitIndications:Shayy vated blood pressure reading without diagnosis of hypertension Use by arm route 1-2 times everyday 1 kit 01/28/20 22 Active busPIRone (Buspar) 7.5 MG tablet Take 7.5 mg by mouth 2 times daily. 05/03/19 24 Active melatonin 5 MG tablet Take 1 tablet by mouth at bedtime. 05/03/19 24 Active cholecalciferol VITAMIN D (Vitamin D-3) 50 MCG (1999 UT) capsuleIndications :Vitamin D deficiency TAKE 1 CAPSULE (50 MCG) BY MOUTH ONCE PER DAY. 90 capsule 1 03/01/19 25 Active hydrocortisone 2.5 % creamIndications:R jose c Apply topically 2 times daily. 3.5 g 1 06/25/19 25 Active Diclofenac Sodium 1 % gelIndications:Chr onic pain of both knees Apply topically to affected areas twice daily 150 g 1 06/25/19 25 Active Oyster Shell Calcium 500 MG tabletIndications: Smoker TAKE 1 TABLET BY MOUTH EVERY DAY 90 tablet 1 09/03/19 25 Active atorvastatin (Lipitor) 40 MG tabletIndications: Mixed hyperlipidemia TAKE 1 TABLET BY MOUTH EVERY DAY 90 tablet 1 09/03/19 25 Active Tirzepatide-Weight Management (Zepbound) 5 MG/0.5ML solution auto-injectorIndic ations:Encounter for weight management Inject 0.5 mL (5 mg) under the skin 1 (one) time per week. INJECT ONE PEN (=5 MG) SUBCUTANEOUSLY ONCE A WEEK 2 mL 1 09/26/19 25 Active valACYclovir (Valtrex) 500 MG tablet Take 1 tablet (500 mg) by mouth Once per day. Take one tablet twice a day for three days for outbreak. Otherwise take one tablet daily 36 tablet 11 10/08/19 25 025 Active lidocaine (Xylocaine) 5 % ointmentIndication s:Herpes infection Apply topically if needed for mild pain. Apply to affected area up to 5 times a day for a week 30 g 1 10/08/19 25 026 Active cetirizine (ZyrTEC) 10 MG tabletIndications: Sore throat 1 tab po daily prn allergies 30 tablet 2 11/01/19 25 Active Active Problems Problem Noted Date Diagnosed Date Club foot of both lower extremities 10/23/2023 Chronic pain of both feet 10/23/2023 Other chronic pain 10/20/2023 Overview (10/20/2023): - Numbness/tingling/pain in left hand x several months. Worse at night. No prior injury. ---> NCT 08/30/23 negative for median neuropathy. Also c/o widespread chronic pain. 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 - Followed by [facility] Encounters Date Type Department Care Team Description 10/31/2024 10:40 AM EDT Office Visit [facility] [address] [place] [address] Shena Hargrove MD Sore throat (Primary Dx) 10/31/2024 Travel 10/07/2024 11:30 AM EDT Office Visit [facility] [address] [place] [address] Joan Wilcox CNM Herpes infection (Primary Dx) 10/07/2024 Travel 09/25/2024 10:00 AM EDT Office Visit [facility] [address] [place] [address] Archana Judd FNP Encounter for weight management 09/25/2024 Travel 09/24/2024 Telephone [facility] [address] [place] [address] Archana Judd FNP Chart Prep 09/18/2024 2:00 PM EDT Office Visit [facility] [address] [place] [address] Jenise Monroy, OD Myopia, bilateral (Primary Dx); Normal eye exam 09/18/2024 Travel 09/17/2024 Patient Outreach [facility] [address] [place] [address] Archana Judd FNP Pre-visit Planning (SDOH Screening negative and Tobacco screening negative) 09/02/2024 Refill [facility] [address] [place] [address] Archana Judd FNP Encounter for weight management 09/01/2024 Refill [facility] [address] [place] [address] Archana Judd FNP Mixed hyperlipidemia 08/31/[address] [address] Archana Judd FNP Smoker; Mixed hyperlipidemia 08/21/2024 Telephone [facility] [address] [place] [address] Archana Judd FNP Durable Medical Equipment ([facility] Care DME Request: Hand held shower head, Seated Walker) from Last 3 Months Immunizations Immunization Administration Dates Next Due Pfizer Covid-19 Vaccine 12+ 11/28/2020, Tdap 06/21/2023 Social History Tobacco Use Types Packs/Day Years [...] not to disclose 2021 10:38 AM EDT Last Filed Vital Signs Vital Sign Reading [...] Mass Index 26.15 10/31/2024 10:41 AM EDT Plan of Treatment Upcoming Encounters Date Type Department Care Team (Late st Contact Info) Description 11/20/2024 10:15 AM EDT Office Visit [facility] [address] [place], [place] [phone] [facility] [address] [place] [address] Health Maintenance Due Date Last Done Comments CT Colonography 1973 FIT DNA/Cologuard 1973 FIT 1973 FOBT 1975 Sigmoidoscopy 1973 Alcohol/Substance Use Screening 1985 Family Planning (PISQ) 1988 Hepatitis B Vaccines (1 of 3 - 19+ 3-dose series) 1992 Dental Prophylaxis 10/03/2022 04/04/2022 Pneumococcal Vaccine: 50+ Years (1 of 1 - PCV) 2023 Zoster Vaccines (1 of 2) 2023 Dental Oral Exam 11/16/2023 05/15/2023, 01/19/2022 Dental X-Ray: Bitewings 05/15/2024 05/15/2023, 01/19 COVID-19 Vaccine (3 - 2024- season) 2024 11/28/2020, 11/07/2020 Influenza Vaccine (#1) 2024 Dental X-Ray: Full Mouth 01/20/2025 01/19/2022 Mammogram 02/12/2025 02/13/2024, 1008/2021, 09/30/2021, Additional history exists SDOH Screening 09/17/2025 09/17/2024 Depression Screening 09/25/2025 09/25/2024, 09/26/19 25 Disability Screening 09/25/2025 09/25/2024 Tobacco Screening 10/31/2025 10/31/2024 Cervical Cancer Screening 01/19/2026 HPV/Cotest 01/19/2026 01/19/2021 Pap Smear 01/19/2026 01/19/2021 Lipid Panel 06/20/2028 06/21/2023, 11/0 10/2021, 01/05/2022, Additional history exists Colonoscopy 12/18/2030 12/18/2020 Colorectal Cancer Screening 12/18/2030 DTaP/Tdap/Td Vaccines (2 - Td or Tdap) 06/20/2033 06/21/2023 RSV Patients and Patients Aged 60 years or older (1 - 1-dose 75+ series) 2048 HIV Screening Completed 12/14/2021 Hepatitis C Screening Completed 12/14/2021 HIB Vaccines Aged Out No longer eligi ble based on patient's age to complete this topic HPV Vaccines Aged Out No longer eligi ble based on patient's age to complete this topic Hepatitis A Vaccines Aged Out No long er eligible based on patient's age to complete this topic IPV Vaccines Aged Out No longer eligi ble based on patient's age to complete this topic Meningococcal B Vaccine Aged Out No l onger eligible based on patient's age to complete this topic Meningococcal Vaccine Aged Out No yuliana rick eligible based on patient's age to complete this topic RSV under 20 months Aged Out No longe r eligible based on patient's age to complete this topic Rotavirus Vaccines Aged Out No longer eligible based on patient's age to complete this topic Procedures Procedure Name Priority Date/Time Associated Diagnosis Comments POCT RAPID COVID ANTIGEN Routine 10/31/2024 10:58 AM EDT Sore throat POCT RAPID STREP A Routine 10/31/2024 10 :58 AM EDT Sore throat POCT INFLUENZA A (ID NOW RAPID MOLECULAR) Routine 10/31/2024 10:58 AM EDT Sore throat POCT INFLUENZA B (ID NOW RAPID MOLECULAR) Routine 10/31/2024 10:58 AM EDT Sore throat BI MAMMOGRAM SCREENING TOMOSYNTHESIS BILATERAL Routine 02/13/2024 11:26 AM EST LIPID PANEL, STANDARD Routine 06/21/2023 11:57 AM EDT Mixed hyperlipidemia BITEWINGS - 4 RADIOGRAPHIC IMAGES Routine 05/15/2023 11:30 AM EDT Dental calculus Partial edentulism, class II PERIODIC ORAL EVALUATION - ESTABLISHED PATIENT Routine 05/15/2023 11:30 AM EDT Dental calculus Partial edentulism, class II PROPHYLAXIS - ADULT Routine 04/04/2022 2 :00 PM EST Dental calculus INTRAORAL - COMPLETE SERIES OF RADIOGRAPHIC IMAGES Routine 01/19/2022 12:00 AM EST ZZZ HISTORICAL HEPATITIS C AB W/REFL TO HCV RNA, QN, PCR Routine 12/14/2021 9:11 AM EDT HIV 1/2 ANTIGEN/ANTIBODY, FOURTH GENERATION W/RFL Routine 12/14/2021 9:11 AM EDT THINPREP IMAGING PAP AND HPV MRNA E6/E7, WITH CT/NG, TRICHOMONAS Routine 01/19/2021 12:00 AM EST HM COLONOSCOPY Routine 12/18/2020 from Last 3 Months or Most Recently Relevant to Health Maintenance Results * Influenza B (ID NOW Rapid Molecular) (10/31/2024 10:58 AM EDT) Influenza B Negative Negative, Indeterminate [facility] Swab 10/31/2024 10:5 8 AM EDT us Shena Hargrove MD POINT OF CARE TEST ENTER/E DIT ORDERABLES Final Result [facility] [address] [place] [phone] * Influenza A (ID NOW Rapid Molecular) (10/31/2024 10:58 AM EDT) Influenza A Negative Negative, Indeterminate [facility] Swab 10/31/2024 10:5 8 AM EDT Shena Hargrove MD POINT OF CARE TEST ENTER/E DIT ORDERABLES Final Result Performing Organization Address City/State/[facility] Co de Phone Number [facility] [address] [place] [phone] * POCT Rapid COVID Ag (10/31/2024 10:58 AM EDT) Rapid COVID Ag Negative Swab 10/31/2024 10:5 8 AM EDT Shena Hargrove MD POINT OF CARE TEST ENTER/E DIT ORDERABLES Final Result * POCT rapid strep A manually resulted (10/31/2024 10:58 AM EDT) Rapid Strep A Screen Negative Negative, None Detected Swab 10/31/2024 10:5 8 AM EDT Shena Hargrove MD POINT OF CARE TEST ENTER/E DIT ORDERABLES Final Result * BI Mammogram Screening Tomosynthesis Bilateral (02/13/2024 11:26 AM EST) Anatomical Region Laterality Modality Breast Bilateral Mammography 02/13/2024 11:2 6 AM EST Narrative 02/22/2024 1:35 PM EST [facility] [address] [place] [address] Mammography Report Signed Patient: Lynn Pizano MR#: [id number] : 1975 Acct:[id number] Age/Sex: 48 / F ADM Date: 02/13/24 Loc: HO.MAMMO Attending Dr: Archana Judd STUNT MAN Ordering Physician: Archana Judd STUNT MAN Results: 1Nega tive Date of Service: 02/13/24 Follow Up: 1 Year From Orig inal Mammogram Procedure(s): MM tomosynthesis screening BI Accession Number(s): [id number] cc: Archana Judd STUNT MAN EXAMINATION: MM SCREENING DIGITAL BREAST TOMOSYNTHESIS, BILATERAL CLINICAL INFORMATION: Screening. Asymptomatic. COMPARISON: Mammography: Comparison is made with available priors TECHNIQUE: Digital breast mammography with tomosynthesis is performed in both the craniocaudal and mediolateral oblique views along with computer-aided detection (CAD). FINDINGS: There are scattered areas of fibroglandular density (ACR BI-RADS breast composition Category b). There are no significant masses, abnormal calcifications, or other abnormalities. MM/MM tomosynthesis screening BI IMPRESSION: No mammographic evidence of malignancy. ASSESSMENT: BI-RADS BI-RADS 1 - Negative RECOMMENDATION: Routine annual mammography screening. 1 year F/U This examination should not preclude the clinical evaluation of a suspicious palpable abnormality. This patient's information was entered into a reminder system with a target due date for their next mammogram. Electronically signed by: Magali Turner DO 02/22/2024 01:32 PM [facility] Dictated By: Magali Turner DO Signed By: <Electronically signed by Magali Turner DO in OV> 02/22/24 1332 DD/ 1126 TD/TT: 02/13/24 1139 Locomotive Crane Engineer: Procedure Note Donotuseinterpreter, Image - 02/22/2024 [facility] [address] [place], [place] [address] Mammography Report Signed Patient: Lynn PizanoMR#: [id number] : 1975Acct:[id number] Age/Sex: 48 / FADM Date: 02/13/24 Loc: [facility] Attending Dr: Archana Judd STUNT MAN Ordering Physician: Archana Judd FNPResults: 1Nega tive Date of Service: 02/13/24Follow Up: 1 Year From Orig inal Mammogram Procedure(s): MM tomosynthesis screening BI Accession Number(s): [id number] cc: [facility] STUNT MAN EXAMINATION: MM SCREENING DIGITAL BREAST TOMOSYNTHESIS, BILATERAL CLINICAL INFORMATION: Screening. Asymptomatic. COMPARISON: Mammography: Comparison is made with available priors TECHNIQUE: Digital breast mammography with tomosynthesis is performed in both the craniocaudal and mediolateral oblique views along with computer-aided detection (CAD). FINDINGS: There are scattered areas of fibroglandular density (ACR BI-RADS breast composition Category b). There are no significant masses, abnormal calcifications, or other abnormalities. MM/MM tomosynthesis screening BI IMPRESSION: No mammographic evidence of malignancy. ASSESSMENT: BI-RADS BI-RADS 1 - Negative RECOMMENDATION: Routine annual mammography screening. 1 year F/U This examination should not preclude the clinical evaluation of a suspicious palpable abnormality. This patient's information was entered into a reminder system with a target due date for their next mammogram. Electronically signed by: Magali Turner DO 02/22/2024 01:32 PM [facility] Dictated By: Magali Turner DO Signed By: <Electronically signed by Magali Turner DO in OV> 02/22/24 1332 DD/ 1126 TD/TT: 02/13/24 1139 Locomotive Crane Engineer: [facility] STUNT MAN IMG BI PROCEDURES Final Resul t * (ABNORMAL) Lipid Panel, Standard (06/21/2023 11:57 AM EDT) Triglycerides 81 <150 mg/dL [facility] Comment:Desirable Triglyceri de: less than 150 mg/dLBorderline High Triglyceride 150-199 mg/dLHigh Triglyceride: 200-499 mg/dLVery High Triglyceride: greater than or equal to 5OO mg/dL Cholesterol 273(H) <200 mg/dL [facility] Comment:Desirable Cholestero l: less than 200 mg/dLBorderline High Cholesterol: 200-239 mg/dLHigh Cholesterol: greater than 239 mg/dL LDL Cholesterol Calculated 186(H) <100 mg/dL [facility] Comment:Desirable LDL: less than 100 mg/dLNear Optimal/Above Optimal LDL: 110- 129 mg/dLBorderline High LDL: 130-159 mg/dLHigh LDL: 160-189 mg/dLVery High LDL: greater than or equal to 190 mg/dL HDL Cholesterol 71 >40 mg/dL [facility] Comment:Desirable HDL: great er than 40 mg/dL Note: This HDL assay may give artificially low results in patients with liver disease. Blood Venous blood specimen / Unknown 06/21/2023 11:57 AM EDT 06/21/2023 1:28 PM EDT [facility] LAB BLOOD ORDERABLES Final Re sult Performing Organization Address [facility]/ZIP Co de Phone Number [facility] [address] [place] [phone] * HEPATITIS C AB W/REFL TO HCV RNA, QN, PCR (12/14/2021 9:11 AM EDT) HEPATITIS C ANTIBODY NON-REACTI VE NON-REACT CHERYL [facility] INDEX 0.09 <1.00 [facility] Comment: HCV antibody was non-reactive. There is no laboratory evidence of HCV infection. In most cases, no further action is required. However, if recent HCV exposure is suspected, a test for HCV RNA (test code 64361) is suggested. For additional information please refer to http://education.AVAST Software/faq/DNW83k2 (This link is being provided for informational/ educational purposes only.) 12/14/2021 9:11 AM EDT [facility] STUNT MAN HISTORICAL/NON ORDERABLE LABS Final Result Performing Organization Address [facility]/ZIP Co de Phone Number [facility] * HIV 1/2 ANTIGEN/ANTIBODY,FOURTH GENERATION W/RFL (12/14/2021 9:11 AM EDT) HIV-1/2 ANTIGEN AND ANTIBODIES, 4TH GENERATION W/ REFLEX NON-REACT CHERYL NON-REACT CHERYL [facility] Comment: HIV-1 antigen and HIV-1/HIV-2 antibodies were not detected. There is no laboratory evidence of HIV infection. PLEASE NOTE: This information has been disclosed to you from records whose confidentiality may be protected by state law. If your state requires such protection, then the state law prohibits you from making any further disclosure of the information without the specific written consent of the person to whom it pertains, or as otherwise permitted by law. A general authorization for the release of medical or other information is NOT sufficient for this purpose. For additional information please refer to http://[employer] ([employer] Technology.[employer]AST Software/faq/NXA434 (This link is being provided for informational/ educational purposes only.) The performance of this assay has not been clinically validated in patients less than 2 years old. 12/14/2021 9:11 AM EDT [facility] LAB BLOOD ORDERABLES Final Re sult [facility] * THINPREP TIS PAP AND HPV mRNA E6/E7, CT/NG, TRICH (01/19/2021 12:00 AM EST) Chlamydia trachomatis RNA, TMA, Urogenital NOT DETECTED NOT DETECTED [facility] Clinical Information: None given [facility] COMMENT SEE COMMENT [facility] Comment: The analytical performance characteristics of this assay, when used to test SurePath(TM) specimens have been determined by [email or web address]. The modifications have not been cleared or approved by the FDA. This assay has been validated pursuant to the CLIA regulations and is used for clinical purposes. For additional information, please refer to https://[employer]AST Software/faq/DPD372 (This link is being provided for information/ educational purposes only.) COMMENT SEE COMMENT [facility] Comment: EXPLANATORY NOTE: The Pap is a screening test for cervical cancer. It is not a diagnostic test and is subject to false negative and false positive results. It is most reliable when a satisfactory sample, regularly obtained, is submitted with relevant clinical findings and history, and when the Pap result is evaluated along with historic and current clinical information. COMMENT: This Pap test has been evaluated with computer assisted technology. [email or web address] Manager Reporting: SEE COMMENT [facility] Comment: JXM, CT(ASCP) CT screening location: [address] [address] HPV nRNA E6/E7 Not Detected Not Detected [facility] Comment: Methodology: Poultry Husbandry Worker-Mediated Amplification This assay detects E6/E7 viral messenger RNA (mRNA) from 14 high-risk HPV types (16,18,31,33,35,39,45,51,52,56,58,59,66,68). The analytical performance characteristics of this assay have been determined by [email or web address]. The modifications have not been cleared or approved by the FDA. This assay has been validated pursuant to the CLIA regulations and is used for clinical purposes. For additional information, please refer to http://[employer] ([employer] Information Technology.[employer].Senscient/faq/MXJ133m0 (This link if provided for information/ educational purposes only.) Infection Shift in vaginal melonie suggestive of bacterial vaginosis. [facility] Interpretation/Re sult: Negative for intraepithelial lesion or malignancy. [facility] LMP: NONE GIVEN [facility] Neisseria gonorrhoeae RNA, TMA, Urogenital NOT DETECTED NOT DETECTED [facility] Prev. BX: NONE GIVEN [facility] Prev. PAP: NONE GIVEN [facility] SOURCE: None given [facility] Statement Of Adequacy: SEE COMMENT [facility] Comment: Satisfactory for evaluation. Endocervical/transformation zone component present. Age and/or menstrual status not provided Trichomonas vaginalis, QL, TMA, PAP Vial NOT DETECTED NOT DETECTED [facility] Comment: The analytical performance characteristics of this assay have been determined by [email or web address]. The modifications have not been cleared or approved by the FDA. This assay has been validated pursuant to the CLIA regulations and is used for clinical purposes. For additional information, please refer to http://education.AVAST Software/ faq/Trichomonastma (This link is being provided for information/ educational purposes only.) 01/19/2021 Mariela Bourgeois NP LAB PATHOLOGY ORDERABLES Final Result [facility] [address] [place] [address], * Colonoscopy (12/18/2020) Colonoscopy Normal Normal Narrative Viridiana Heaton - 12/18/2020 Repeat in 10 years us Historical Provider HEALTH MAINTENANCE Final Result from Last 3 Months or Most Recently Relevant to Health Maintenance Insurance [facility] [address] [id number] [facility] Care Teams Reclaimer Relationship Specialty Start Date End Date Archana Judd FNP [address] [place] [phone] PCP - General Family Medicine 10/25/21
--- OUTSIDE RECORDS SUMMARY | 2024-10-31 11:47 | XMS_ITS | Encounter Summary ---
Author Organization [employer] Address [address] [facility] 7t [place] [address] Care Team Providers Care Conditioner Tumbler Name Role Phone Archana Judd [employer] Primary Care Provider [phone] Encounter Details Date Type Department Care Team (Latest Contact Info) Description 10/31/2024 Travel Social History Tobacco Use Types Packs/Day Years Used Date Smoking Tobacco: Former Cigarettes 0.3 15 Smokeless Tobacco: Never Alcohol [...] AM EDT documented as of this encounter Plan of Treatment Upcoming Encounters Date Type Department Care Team (Late st Contact Info) Description 11/20/2024 10:15 AM EDT Office Visit [facility] [address] [place] [address] Archana Judd FNP [address] [place] [address] documented as of this encounter Visit Diagnoses Not on filedocumented in this encounter Additional Health Concerns Assessment Noted Time PHQ-9 Depression Total Score: 0 09/26/19 25 10:17 AM EDT documented as of this encounter Care Teams Conditioner Tumbler Relationship Specialty Start Date End Date Archana Judd FNP [address] [place] [address] PCP - General Family Medicine 10/25/21 documented as of this encounter
--- OUTSIDE RECORDS SUMMARY | 2024-10-31 11:47 | XMS_ITS | Encounter Summary ---
Author Organization [employer] Address [address] [facility] [address]t [place] [address] Care Team Providers Care Profiling Machine Operator Name Role Phone Archana Judd LAW OFFICE RECEPTIONIST Primary Care Provider [phone] Encounter Details Date Type Department Care Team ([facility] Contact Info) Description 02/10/2022 Abstract [facility] [address] [place], [place] [phone] Johnson Medel, DMD [address] [place], [place] [phone] Social History Tobacco Use Types Packs/Day Years [...] suspected to have Coronavirus/COVID-19? No / Unsure 02/02/2022 12:51 PM EST documented as of this encounter Plan of Treatment Upcoming Encounters Date Type Department Care Team ([facility] Contact Info) Description 11/20/2024 10:15 AM EDT Office Visit [facility] [address] [place], [place] [phone] Archana Judd FNP [address] [place], [place] [phone] documented as of this encounter Visit Diagnoses Not on filedocumented in this encounter Care Teams Profiling Machine Operator Relationship Specialty Start Date End Date Archana Judd FNP [address] [place] [address] [place] [address] PCP - General Family Medicine 10/25/21 documented as of this encounter
--- OUTSIDE RECORDS SUMMARY | 2024-10-31 11:47 | XMS_ITS | Encounter Summary ---
Author Organization [employer] Address [address] [facility] 7t [place] [address] Care Team Providers Care Beam Racker Name Role Phone Archana Judd Primary Care Provider [phone] Encounter Details Date Type Department Care Team (Latest Contact Info) Description 01/19/2022 Abstract [facility] CONVERSIONS Dental, Provider, DDS Social History Tobacco Use Types Packs/Day Years Used Date Smoking Tobacco: Never Assessed Comments Unknown Sex and Gender Information Value [...] Description 11/20/2024 10:15 AM EDT Office Visit [facility] MEDICINE [address] [place] [address] Archana Judd FNP [address] [place] [address] documented as of this encounter Visit Diagnoses Not on filedocumented in this encounter Care Teams Beam Racker Relationship Specialty Start Date End Date Archana Judd FNP [address] [place] [address] PCP - General Family Medicine 10/25/21 documented as of this encounter
--- OUTSIDE RECORDS SUMMARY | 2024-10-31 11:47 | XMS_ITS | Encounter Summary ---
Author Organization [employer] Address [address] [facility] 7t [place] [address] Care Team Providers Care Wash Driller Name Role Phone Archana Judd Primary Care Provider [phone] Encounter Details Date Type Department Care Team (Late Contact Info) Description 03/07/2022 Abstract [facility] ADULT DENTAL [address] [place], [place] [phone] Yaw Hyde DDS [address] [place], [place] [phone] Social History Tobacco Use Types Packs/Day Years [...] Description 11/20/2024 10:15 AM EDT Office Visit [facility] MEDICINE [address] [place] [address] Archana Judd FNP [address] [place] [address] documented as of this encounter Visit Diagnoses Not on filedocumented in this encounter Care Teams Wash Driller Relationship Specialty Start Date End Date Archana Judd FNP [address] [place] [address] [place] [address] PCP - General Family Medicine 10/25/21 documented as of this encounter
--- OUTSIDE RECORDS SUMMARY | 2024-10-31 11:47 | XMS_ITS | Encounter Summary ---
Author Organization [employer] Address [address] [facility] 7t [place] [address] Care Team Providers Care Pediatric Physical Therapist Name Role Phone Archana Judd [facility] Primary Care Provider [phone] Encounter Details Date Type Department Care Team (Late st Contact Info) Description 01/24/2022 Abstract [facility] ADULT DENTAL [address] [place] [address] Johnson Medel, DMD [address] [place] [address] Supra-eruption of tooth Social History Tobacco Use Types Packs/Day Years [...] suspected to have Coronavirus/COVID-19? No / Unsure 01/27/2022 2:01 PM EST documented as of this encounter Plan of Treatment Upcoming Encounters Date Type Department Care Team (Late st Contact Info) Description 11/20/2024 10:15 AM EDT Office Visit [facility] MEDICINE [address] [place] [address] [place] CORPORATE COMPLIANCE DIRECTOR [address] [place] [address] documented as of this encounter Procedures Procedure Name Priority Date/Time Associated Diagnosis Comments 18 MO RESIN-BASED COMPOSITE - 2 SURF, POSTERIOR Routine 01/24/2022 12:00 AM EST 5 DO RESIN-BASED COMPOSITE - 2 SURF, POSTERIOR Routine 01/24/2022 12:00 AM EST ORAL HYGIENE INSTRUCTIONS Routine 2021 12:00 AM EST INTRAORAL - COMPLETE SERIES OF RADIOGRAPHIC IMAGES Routine 01/19/2022 12:00 AM EST COMPREHENSIVE ORAL EVALUATION - NEW OR ESTABLISHED PATIENT Routine 01/19/2022 12:00 AM EST CARIES RISK ASSESSMENT AND DOCUMENTATION, HIGH RISK Routine 01/19/2022 12:00 AM EST documented in this encounter Visit Diagnoses Diagnosis Supra-eruption of tooth documented in this encounter Care Teams Pediatric Physical Therapist Relationship Specialty Start Date End Date Archana Judd FNP [address] [place] [address] PCP - General Family Medicine 10/25/21 documented as of this encounter
--- OUTSIDE RECORDS SUMMARY | 2024-10-31 11:47 | XMS_ITS | Encounter Summary ---
Author Organization [employer] Address [address] [facility] 7t [place] [address] Care Team Providers Care Tobacco Stripper Hand Name Role Phone Archana Judd Primary Care Provider [phone] Encounter Details Date Type Department Care Team (Late Contact Info) Description 03/01/2022 Abstract [facility] ADULT DENTAL [address] [place], [place] [phone] Yaw Hyde DDS [address] [place], [place] [phone] Social History Tobacco Use Types Packs/Day Years [...] Description 11/20/2024 10:15 AM EDT Office Visit [facility] MEDICINE [address] [place] [address] Archana Judd FNP [address] [place] [address] documented as of this encounter Visit Diagnoses Not on filedocumented in this encounter Care Teams Tobacco Stripper Hand Relationship Specialty Start Date End Date Archana Judd FNP [address] [place] [address] [place] [address] PCP - General Family Medicine 10/25/21 documented as of this encounter
--- OUTSIDE RECORDS SUMMARY | 2024-10-31 11:47 | XMS_ITS | Encounter Summary ---
Author Organization [employer] Address [address] [facility] 7t [place] [address] Care Team Providers Care Mobile Home Laborer Name Role Phone [place] [facility] Primary Care Provider [phone] Reason for Visit * Reason Onset Date Comments PA 08/28/2023 Encounter Details Date Type Department Care Team ([facility] st Contact Info) Description 08/28/2023 Telephone [facility] MEDICINE [address] [place], [place] [phone] [place] [facility] [address] [place], [place] [phone] [place] Social History Tobacco Use Types Packs/Day Years Used Date Smoking Tobacco: Former Cigarettes 0.3 15 Smokeless Tobacco: Never Alcohol Use Standard Drinks/Week Comments Never 0 (1 standard drink = 0.6 oz pur e alcohol) Depression Answer Date Recorded Patient Health Questionnaire-9 Score 0 08/23/2023 Patient Health Questionnaire-9 Score 0 08/23/2023 Last PHQ-9: Questionnaire Data Not on file 0 08/23/2023 Housing Stability Answer Date Recorded What is your housing situation today? I have [place] 08/23/[address] you li ve. Do you have problems with any of the following? None of the above 08/23/2023 Food Insecurity Answer Date Recorded Within the past 12 months, y ou worried that your food would run out before you got money to buy more: Never True 08/23/2023 Within the past 12 months,th e food you bought just didn't last and you didn't have enough money to get more: Never True Transportation Answer Date Recorded In the past 12 months, has l ack of transportation kept you from medical appts, meetings, work or from getting things needed for daily living? No 08/23/2023 Utilities Answer Date Recorded In the past 12 months, has t he electric, gas, oil or water company threatened to shut off services in your home? No 08/23/2023 Depression Answer Date Recorded Patient Health Questionnaire-2 Score 0 08/23/2023 Comments No Sex and Gender Information Value Date Recorded Sex Assigned at Female 12/27/2021 10:38 AM EDT Legal Sex Female 10:38 AM EDT Gender Identity Female 12/27/2021 10:38 AM EDT Sexual Orientation Choose not to disclose 2021 10:38 AM EDT documented as of this encounter Miscellaneous Notes * Telephone Encounter - Beverley Garza - 08/28/2023 10:19 AM EDT Tc from pt calling to inform a PA for medication Semaglutide-Weight Management (Wegovy) 0.5 MG/0.5ML solution auto-injector is needed . documented in this encounter Plan of Treatment Upcoming Encounters Date Type Department Care Team (Late st Contact Info) Description 11/20/2024 10:15 AM EDT Office Visit [facility] MEDICINE [address] [place] [address] Archana Judd FNP [address] [place] [address] documented as of this encounter Visit Diagnoses Not on filedocumented in this encounter Additional Health Concerns Assessment Noted Time PHQ-9 Depression Total Score: 0 08/23/19 24 11:01 AM EDT documented as of this encounter Care Teams Mobile Home Laborer Relationship Specialty Start Date End Date Archana Judd FNP [address] [place] [address] PCP - General Family Medicine 10/25/21 documented as of this encounter
--- OUTSIDE RECORDS SUMMARY | 2024-10-31 11:47 | XMS_ITS | Encounter Summary ---
Author Organization [employer] [facility] Address [address] [place] [address] 7t [place] [address] Care Team Providers Care Smoking Pipe Mounter Name Role Phone [facility] [facility] Primary Care Provider [phone] Encounter Details Date Type Department Care Team (Late Contact Info) Description 01/13/2023 Abstract [facility] MEDICINE [address] [place] [address] Viridiana Heaton Social History Tobacco Use Types Packs/Day Years Used Date Smoking Tobacco: Former Cigarettes 0.3 15 Smokeless Tobacco: Never Alcohol Use Standard Drinks/Week Comments Never 0 (1 standard drink = 0.6 oz pur e alcohol) Comments No Sex and Gender Information Value [...] Description 11/20/2024 10:15 AM EDT Office Visit [facility] MEDICINE [address] [place] [address] [place] [facility] [address] [place], [place] [phone] documented as of this encounter Procedures Procedure Name Priority Date/Time Associated Diagnosis Comments COLONOSCOPY Routine 12/18/2020 documented in this encounter Results * Colonoscopy (12/18/2020) Colonoscopy Normal Normal Narrative Viridiana Heaton - 12/18/2020 Repeat in 10 years us Historical Provider HEALTH MAINTENANCE Final Result documented in this encounter Visit Diagnoses Not on filedocumented in this encounter Care Teams Smoking Pipe Mounter Relationship Specialty Start Date End Date Archana Judd FNP [address] [place] [address] PCP - General Family Medicine 10/25/21 documented as of this encounter
--- OUTSIDE RECORDS SUMMARY | 2024-10-31 11:47 | XMS_ITS | Encounter Summary ---
Author Organization [employer] Address [address] [facility] 7t [place] [address] Care Team Providers Care Command And Control Officer Name Role Phone [facility] Primary Care Provider [phone] Reason for Visit * Reason Onset Date Comments Med Refill 03/07/2024 Encounter Details Date Type Department Care Team ([facility] st Contact Info) Description 03/07/[address] [facility] MEDICINE [address] [place], [place] [phone] [facility] [address] [place], [place] [phone] Med Refill Social History Tobacco Use Types Packs/Day Years Used Date Smoking Tobacco: Former Cigarettes 0.3 15 Smokeless Tobacco: Never Alcohol Use Standard Drinks/Week Comments Never 0 (1 standard drink = 0.6 oz pur e alcohol) Depression Answer Date Recorded Patient Health Questionnaire-9 Score 0 01/31/2024 Patient Health Questionnaire-9 Score 0 01/31/2024 Last PHQ-9: Questionnaire Data Not on file 1 04/02/2023 Housing Stability Answer Date Recorded What is [...] Date Recorded Patient Health Questionnaire-2 Score 0 01/31/2024 Internet Access Answer Date Recorded Internet Access Q1 I am not sure 10/27/2023 Internet Access Q2 Not on file 10/27/2023 Comments No Sex and Gender Information Value Date Recorded Sex Assigned at Female 12/27/2021 10:38 AM EDT Legal Sex Female 10:38 AM EDT Gender Identity Female 12/27/2021 10:38 AM EDT Sexual Orientation Choose not to disclose 2021 10:38 AM EDT documented as of this encounter Miscellaneous Notes * Telephone Encounter - Kayley Gallego LPN - 03/25/2024 9:06 AM EST Script was sent to [facility][id number] on 01/31/24 with 3 refills. * Telephone Encounter - Cole Nicholas - 03/25/2024 8:56 AM EST TC from pt requesting medication refill. Medications needing refill : Tirzepatide-Weight Management (Zepbound) 2.5 MG/0.5ML solution auto-injector To be sent to: [facility]/pharmacy #[id number] - [place], [place] - [address] documented in this encounter Plan of Treatment Upcoming Encounters Date Type Department Care Team (Late st Contact Info) Description 11/20/2024 10:15 AM EDT Office Visit [facility] MEDICINE [address] [place] [address] [place], [facility] [address] [place] [address] documented as of this encounter Visit Diagnoses Diagnosis Encounter for weight management documented in this encounter Additional Health Concerns Assessment Noted Time PHQ-9 Depression Total Score: 0 01/31/20 24 11:04 AM EST documented as of this encounter Care Teams Command And Control Officer Relationship Specialty Start Date End Date Archana Judd FNP [address] [place] [address] PCP - General Family Medicine 10/25/21 documented as of this encounter
--- OUTSIDE RECORDS SUMMARY | 2024-10-31 11:47 | XMS_ITS | Encounter Summary ---
Author Organization [employer] Address [address] [place] [address] 7t [place] [address] Care Team Providers Care Tool And Die Manager Name Role Phone Archana Judd Primary Care Provider [phone] Encounter Details Date Type Department Care Team (Late Contact Info) Description 01/13/2023 Abstract [facility] MEDICINE [address] [place] [address] Viridiana Heaton Social History Tobacco Use Types [...] Description 11/20/2024 10:15 AM EDT Office Visit [facility] MEDICINE [address] [place] [address] Archana Judd FNP [address] [place] [address] documented as of this encounter Visit Diagnoses Not on filedocumented in this encounter Care Teams Tool And Die Manager Relationship Specialty Start Date End Date Archana Judd FNP [address] [place] [address] PCP - General Family Medicine 10/25/21 documented as of this encounter
--- OUTSIDE RECORDS SUMMARY | 2024-10-31 11:47 | XMS_ITS | Encounter Summary ---
Author Organization [employer] Address [address] [facility] 7t [place] [address] Care Team Providers Care Nursing Educator Name Role Phone [place] [facility] Primary Care Provider [phone] Reason for Visit * Reason Comments Med Change Request Encounter Details Date Type Department Care Team ([facility] st Contact Info) Description 08/23/2023 Refill [facility] MEDICINE [address] [place], [place] [phone] [place] [facility] [address] [place], [place] [phone] Class 2 severe obesity due to excess calories with serious comorbidity and body mass index (BMI) of 35.0 to 35.9 in adult (CMS/HCC) Social History Tobacco Use Types Packs/Day Years [...] AM EDT documented as of this encounter Functional Status * Over the past 2 weeks, how often have you been bothered by any of the following problems? Question Answer Date of Assessment Author Patient Health Questionnaire-2 Score 0 08/23/2023 11:01 AM EDT Darling Keller MA * Over the past 2 weeks, how often have you been bothered by any of the following problems? Question Answer Date of Assessment Author Little interest or pleasure in doing things Not at all 08/23/2023 11:01 AM Darling Bonilla [place] Feeling down, depressed, or hopeless Not at all 08/23/2023 11:01 AM AMBERT Darling Tapia [place] Trouble falling or staying asleep, or sleeping too much Not at all 08/23/2023 11:01 AM AMBERT Darling Marie MA Feeling tired or having little energy Not at all 08/23/2023 11:01 AM Draling Bonilla [place] Poor appetite or overeating Not at all 08/23/2023 11 :01 AM Darling Bonilla [place] Feeling bad about yourself - or that you are a failure or have let yourself or your family down Not at all 08/23/2023 11:01 AM Darling Bonilla [place] Trouble concentrating on things, such as reading the newspaper or watching television Not at all 08/23/2023 11:01 AM EDT Darling Tapia MA Moving or speaking so slowly that other people could have noticed? Or the opposite - being so fidgety or restless that you have been moving around a lot more than usual. Not at all 08/23/2023 11:01 AM EDT Darling Post MA Thoughts that you would be better off or hurting yourself in some way Not at all 08/23/2023 11:01 AM EDT Darling Tapia MA Patient Health Questionnaire-9 Score 0 08/23/2023 11:01 AM EDT Darling Keller MA documented as of this encounter Plan of Treatment Upcoming Encounters Date Type Department Care Team (Late st Contact Info) Description 11/20/2024 10:15 AM EDT Office Visit [facility] MEDICINE [address] [place] [address] Archana Judd FNP [address] [place] [address] documented as of this encounter Visit Diagnoses Diagnosis Class 2 severe obesity due to excess calories with serious comorbidity and body mass index (BMI) of 35.0 to 35.9 in adult (CMS/[facility]) documented in this encounter Additional Health Concerns Assessment Noted Time PHQ-9 Depression Total Score: 0 08/23/19 11:01 AM EDT documented as of this encounter Care Teams Nursing Educator Relationship Specialty Start Date End Date Archana Judd FNP [address] [place] [address] PCP - General Family Medicine 10/25/21 documented as of this encounter
== END 2024-10-31 10:28 | disposition home or self-care (01) ==
LOC: HO.HHCX 10:27
PROVIDERS: PCP Registered Nurse; Visit Provider Registered Nurse
DX: Z13.89 Encounter for screening for other disorder (principal)